=== PATIENT | male | born 1965 | race African-American/Black ===

== ENCOUNTER 2024-04-24 22:56 | Emergency (ER) | payer OTHER ==
[~2024-04-24] VITALS: Ht 182.9 cm; Wt 72.6 kg
[~2024-04-24 22:56] MED LIST: [UNRECOGNIZED DRUG - CODE] PO
[2024-04-24 22:57] VITALS: O2SAT 97
[2024-04-25] MEDS ORDERED: MORPHINE SULFATE 4 MG/1 ML DISP.SYRIN ONE (00:01)
[2024-04-25 00:11] LABS: BASOPHILS # (AUTO) 0.1 K/UL (0.0-0.2); BASOPHILS % (AUTO) 0.4 % (0.0-2.0); EOSINOPHILS % (AUTO) 0.1 % (0.0-7.0); HEMATOCRIT 45.5 % (36.7-47.1); HEMOGLOBIN 14.6 g/dL (12.5-16.3); LYMPHOCYTES # (AUTO) 0.7 K/uL (0.8-4.8); LYMPHOCYTES % (AUTO) 5.1 % (20.5-51.5); MEAN CORPUSCULAR HEMOGLOBIN 29.9 uug (23.8-33.4); MEAN CORPUSCULAR HGB CONC 32 g/dL (32.5-36.3); MEAN CORPUSCULAR VOLUME 93.2 fL (73.0-96.2); MONOCYTES # (AUTO) 1.1 K/uL (0.1-1.30); MONOCYTES % (AUTO) 7.3 % (0.0-11.0); NEUTROPHILS # (AUTO) 12.9 K/uL (1.8-8.9); NEUTROPHILS % (AUTO) 87.1 % (38.5-71.5); PLATELET COUNT (AUTO) 159 K/uL (152-348); RED BLOOD CELL COUNT(AUTO) 4.88 MIL/uL (4.06-5.63); WHITE BLOOD COUNT (AUTO) 14.7 K/uL (3.6-10.2)
[2024-04-25 00:12] LABS: DIFFERENTIAL COMMENT 1
[2024-04-25 00:19] LABS: CALCIUM 9.7 mg/dL (8.5-10.1); CREATININE 1.9 mg/dL (0.6-1.3); POTASSIUM 4.5 mmol/L (3.5-5.1)
[2024-04-25] MEDS: MORPHINE SULFATE 4 MG/1 ML DISP.SYRIN IM ONE (00:19)
[2024-04-25 00:31] LABS: ALBUMIN 3.8 g/dL (3.4-5.0); BILIRUBIN,TOTAL 1.1 mg/dL (0.2-1.0); TOTAL PROTEIN, SERUM 8.1 g/dL (6.4-8.2); URIC ACID 7.7 mg/dL (3.5-7.2)
== END 2024-04-25 00:56 | disposition left against medical advice (07) ==
LOC: ER 23:20
DX: I50.9 Heart failure, unspecified (principal); N28.9 Disorder of kidney and ureter, unspecified; M79.672 Pain in left foot; R06.02 Shortness of breath; R22.42 Localized swelling, mass and lump, left lower limb; R74.8 Abnormal levels of other serum enzymes
CPT/HCPCS: 99283; 36415; 80053; 83880; 84550; 85025; 96372; J2270; A4606; A4663